=== PATIENT | female | born 1980 | race American Indian/Alaskan Native ===

== ENCOUNTER 2016-07-08 14:11 | Emergency (ER) | payer BC, MEDICAID ==
[2016-07-08 15:32] VITALS: BMI 31.4
[2016-07-08 16:51] LABS: ADD MANUAL DIFF? NO
[2016-07-08 16:59] LABS: PH,URINE 6.5 (4.7-8.0); URINE BILIRUBIN NEGATIVE (NEGATIVE); URINE BLOOD SMALL (NEGATIVE); URINE GLUCOSE (UA) NEGATIVE (NEGATIVE); URINE KETONE NEGATIVE (NEGATIVE); URINE LEUKOCYTE ESTERASE NEGATIVE Leu/uL (NEGATIVE); URINE PROTEIN NEGATIVE mg/dL (<30 mg/dL); URINE UROBILINOGEN 0.2 E.U./dL (<1 E.U./dL)
[2016-07-08 17:01] LABS: BASO # 0.03 K/mm3 (0.0-2.0); BASO % 0.4 % (0.0-3.0); EOS # 0.3 (0.0-0.7); EOS % 3.5 % (1.5-5.0); GRAN # 4.52 (1.4-6.5); GRAN % 55.8 % (50.0-68.0); HEMATOCRIT 35.7 % (36.0-48.0); LYMPH # 2.8 (1.2-3.4); LYMPH % 34.9 % (22.0-35.0); MEAN CELL VOLUME 81.7 fL (80.0-105.0); MEAN CORPUSCULAR HGB CONC 33.1 g/dl (31.0-37.0); MEAN PLATELET VOLUME 9.6 fl (7.0-11.0); MONO # 0.4 (0.1-0.6); MONO % 5.4 % (1.0-6.0); PLATELET COUNT 319 10^3/uL (120.0-450.0); RED CELL DISTRIBUTION WIDTH 16.6 % (11.5-14.5); WHITE BLOOD COUNT 8.1 10^3/ul (4.5-11.0)
[2016-07-08 17:04] LABS: ALKALINE PHOSPHATASE 89 U/L (38-133); ALT/SGPT 16 U/L (7-56); AST/SGOT 23 U/L (15-39); BILIRUBIN,TOTAL 0.5 mg/dL (0.2-1.3); BLOOD UREA NITROGEN 8 mg/dL (7-21); CALCIUM 9.4 mg/dL (8.4-10.5); CARBON DIOXIDE 25 mmol/L (21-33); CHLORIDE 103 mmol/L (98-107); GFR AFRICAN-AMERICAN > 60; GLUCOSE,RANDOM 86 mg/dL (70-110); SODIUM 139 mmol/L (132-148); TOTAL PROTEIN 8.1 g/dL (5.8-8.3)
[2016-07-08 17:09] LABS: URINE APPEARANCE CLEAR (CLEAR); URINE COLOR YELLOW (YELLOW)
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
--- NOTE | 2016-07-08 17:32 | CT ---
PROCEDURE: CT Abdomen and Pelvis without Oral or IV contrast. HISTORY: left sided back pain radiating to llq COMPARISON: None available TECHNIQUE: Contiguous axial images of the abdomen and pelvis. No oral or IV contrast administered. Coronal and Sagittal reformats generated and reviewed. Radiation dose: Total exam DLP = 562.10 mGy-cm. FINDINGS: There is limited evaluation of the solid organs without the administration of IV contrast. LOWER THORAX: No visible consolidation, pleural effusion, or pneumothorax. LIVER: Unremarkable unenhanced appearance. GALLBLADDER AND BILE DUCTS: Unremarkable unenhanced appearance. PANCREAS: Unremarkable unenhanced appearance. SPLEEN: Unremarkable unenhanced appearance. ADRENALS: Unremarkable unenhanced appearance. KIDNEYS AND URETERS: No hydronephrosis or obstructing renal calculus. BLADDER: The urinary bladder appears unremarkable. REPRODUCTIVE: Uterus is present. Suspect small fundal fibroid. 3.2 cm probable left adnexal cyst. APPENDIX: The appendix appears within normal limits of caliber. No secondary signs of acute appendicitis. BOWEL: The stomach is nondistended. Lack of oral contrast limits evaluation for bowel pathology. The bowel loops appear within normal limits of caliber without evidence of intestinal obstruction. PERITONEUM: No significant free fluid. No definite free air. LYMPH NODES: No bulky lymphadenopathy identified. VASCULATURE: Unenhanced vasculature appears grossly unremarkable. BONES: No acute osseous abnormality is detected. OTHER FINDINGS: Tiny fat containing umbilical hernia. IMPRESSION: Suspect small fundal fibroid. 3.2 cm probable left adnexal cyst. Recommend further evaluation with pelvic ultrasound.
[2016-07-08 17:35] LABS: URINE BACTERIA SMALL (NEG)
[2016-07-08 18:51] VITALS: BP 98/65; PULSE 65; RESP 18; TEMP 98.5; O2SAT 98
--- NOTE | 2016-07-09 12:24 | US ---
HISTORY: Cramping, back pain. Menstrual status: Irregular periods/ LMP 07/05/2016. COMPARISON: July 08, 2016. CT abdomen and pelvis. TECHNIQUE: Transvaginal only. Real -time technique with 2D, duplex and color Doppler FINDINGS: UTERUS: Measures 9 x 4.2 cm. Normal in size and appearance. Location of fibroid(s) and size: Submucosal, midline 2.5 x 3 cm. ENDOMETRIUM: Measures 5.5 mm in diameter. No ultrasound findings to suggest gestational sac, fluid, debris, mass or polyp or other pathologic process within the endometrium. CERVIX: No cervical abnormality identified. RIGHT OVARY: Measures 3.4 x 1.9 cm. No solid mass. Normal flow. LEFT OVARY: Measures 4.4 x 3.80 cm. No solid mass. Normal flow. Complex perhaps hemorrhagic cyst 2.8 x 3.1 cm corresponding to findings on recent CT FREE FLUID: No significant free fluid noted. OTHER FINDINGS: None. IMPRESSION: Complex cyst left adnexa. Small and solitary uterine fibroid.
== END 2016-07-08 20:10 | disposition home or self-care (01) ==
LOC: ED 14:11
DX: M54.9 Dorsalgia, unspecified (principal); R10.9 Unspecified abdominal pain; N83.202 Unspecified ovarian cyst, left side
CPT/HCPCS: 74176; 76830; 80053; 81001; 85025; 96374; 99283; J1885

== ENCOUNTER 2016-08-21 09:02 | Emergency (ER) | payer MEDICAID ==
[2016-08-21 09:14] VITALS: RESP 18; O2SAT 100
[2016-08-21 09:23] VITALS: BMI 29.3
[2016-08-21] MEDS ORDERED: Sodium Chloride 0.9% 1,000 ML IV STA (09:37)
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
[2016-08-21 09:50] LABS: ADD MANUAL DIFF? NO
[2016-08-21 09:52] LABS: BASO # 0.02 K/mm3 (0.0-2.0); BASO % 0.2 % (0.0-3.0); EOS # 0.3 (0.0-0.7); EOS % 3.5 % (1.5-5.0); GRAN # 4.77 (1.4-6.5); GRAN % 58.2 % (50.0-68.0); HEMATOCRIT 35.5 % (36.0-48.0); LYMPH # 2.6 (1.2-3.4); LYMPH % 31.5 % (22.0-35.0); MEAN CELL VOLUME 83.1 fL (80.0-105.0); MEAN CORPUSCULAR HEMOGLOBIN 27.4 pg (25.0-35.0); MEAN PLATELET VOLUME 9.2 fl (7.0-11.0); MONO # 0.5 (0.1-0.6); MONO % 6.6 % (1.0-6.0); PLATELET COUNT 327 10^3/uL (120.0-450.0); WHITE BLOOD COUNT 8.2 10^3/ul (4.5-11.0)
[2016-08-21 10:01] LABS: ALKALINE PHOSPHATASE 87 U/L (38-133); ALT/SGPT 24 U/L (7-56); AST/SGOT 22 U/L (15-39); BILIRUBIN,TOTAL 0.7 mg/dL (0.2-1.3); BLOOD UREA NITROGEN 7 mg/dL (7-21); CALCIUM 9.1 mg/dL (8.4-10.5); CARBON DIOXIDE 25 mmol/L (21-33); CHLORIDE 103 mmol/L (98-107); GFR AFRICAN-AMERICAN > 60; GLUCOSE,RANDOM 85 mg/dL (70-110); LIPASE 85 U/L (23-300); POTASSIUM 3.7 mmol/L (3.6-5.0); SODIUM 139 mmol/L (132-148); TOTAL PROTEIN 8.2 g/dL (5.8-8.3)
[2016-08-21 10:06] LABS: PH,URINE 7.5 (4.7-8.0); URINE BILIRUBIN NEGATIVE (NEGATIVE); URINE BLOOD MODERATE (NEGATIVE); URINE GLUCOSE (UA) NEGATIVE (NEGATIVE); URINE KETONE NEGATIVE (NEGATIVE); URINE LEUKOCYTE ESTERASE NEGATIVE Leu/uL (NEGATIVE); URINE PROTEIN TRACE mg/dL (<30 mg/dL); URINE UROBILINOGEN 0.2 E.U./dL (<1 E.U./dL)
[2016-08-21 10:33] LABS: URINE APPEARANCE SL CLOUDY (CLEAR); URINE COLOR YELLOW (YELLOW)
[2016-08-21 11:01] LABS: URINE WBC NEGATIVE /hpf (0-6)
[2016-08-21 11:02] LABS: URINE BACTERIA TRACE (NEG)
--- NOTE | 2016-08-21 11:09 | US ---
HISTORY: pelvic pain r/o ectopic last menstrual period at possibly 07/02/2016 patient not [place]. Patient had tubal ligation 2 years ago. Reported positive test in ER. Beta at 1422 COMPARISON: None available. TECHNIQUE: Transvaginal technique utilized FINDINGS: UTERUS: Measures 9.6 x 4.4 x 5.8 cm cm. Normal in size and appearance. No fibroid or other mass lesion seen. 2.3 x 2.0 x 2.2 cm uterine anterior body intramural fibroid is suggested ENDOMETRIUM: Measures 11 mm in diameter. Unremarkable. CERVIX: No cervical abnormality identified. RIGHT OVARY: Measures 2.5 x 1.7 x 1.7 cm. No solid mass. Normal flow. LEFT OVARY: Measures 2.9 x 1.8 x 2.5 cm. No solid mass. Normal flow. FREE FLUID: No significant free fluid noted. OTHER FINDINGS: None. IMPRESSION: No intrauterine gestation seen. Unremarkable appearing ovaries.. Given patient's clinical scenario, an ectopic is not excluded. No ectopic identified. Close and continued follow-up needed Incidental anterior intra mural uterine fibroid
[2016-08-21 11:21] VITALS: BP 112/61; PULSE 74; TEMP 98.3
== END 2016-08-21 11:47 | disposition short-term general hospital (02) ==
LOC: ED 09:02
DX: O26.891 Other specified pregnancy related conditions, first trimester (principal); R10.2 Pelvic and perineal pain
CPT/HCPCS: 76817; 80053; 81001; 83690; 84702; 84703; 85025; 86850; 86900; 99284; J7040

== ENCOUNTER 2016-08-24 14:57 | Emergency (ER) | payer MEDICAID ==
[2016-08-24 14:57] VITALS: BMI 29.3
--- NOTE | 2016-08-24 15:36 | ED PDOC ---
Arrival/HPI - General Chief Complaint: Medical Clearance Time Seen by Provider: 08/24/16 15:14 Historian: Patient - History of Present Illness Narrative History of Present Illness (Text): 08/24/16 15:32 36yo female present to ED for a repeat BHCG. she miguelina seen her e on 08/21/18 and treated with Methotrexate for ectopic at [facility]. She was advised to return to ED on 08/25 and 08/27 for a repeat BHCG. States she still have pain to the same area she had pain when she was seen here on 08/21/16. Patient denies nausea, vomiting, vaginal bleeding, shoulder pain, SOB, chest pain, any other complaint. Past Medical History - Provider Review Nursing Documentation Reviewed: Yes - Infectious Disease Hx of Infectious Diseases: None - Tetanus Immunization Tetanus Immunization: Unknown - Reproductive Menopause: No - Cardiac Hx Cardiac Disorders: No - Pulmonary Hx Respiratory Disorders: No - Neurological Hx Neurological Disorder: No - HEENT Hx HEENT Disorder: No - Renal Hx Renal Disorder: No - Endocrine/Metabolic Hx Endocrine Disorders: Yes Hx Hypothyroidism: Yes - Hematological/Oncological Hx Blood Disorders: No Hx Blood Transfusions: Yes - Integumentary Hx Dermatological Disorder: No - Musculoskeletal/Rheumatological Hx Musculoskeletal Disorders: Yes Hx Back Pain: Yes - Gastrointestinal Hx Gastrointestinal Disorders: No - Genitourinary/Gynecological Hx Genitourinary Disorders: No - Psychiatric Hx Psychophysiologic Disorder: No Hx Substance Use: No - Surgical History Hx Dilation and Curettage: Yes Hx Tubal Ligation: Yes - Anesthesia Hx Anesthesia: Yes Hx Anesthesia Reactions: No Hx Malignant Hyperthermia: No Family/Social History - Physician Review Nursing Documentation Reviewed: Yes Family/Social History: Unknown Family HX Smoking Status: Never Smoked Hx Alcohol Use: No Hx Substance Use: No Allergies/Home Meds Allergies/Adverse Reactions: Allergies No Known Allergies Allergy (Verified 08/24/16 15:30) Home Medications: Home Meds Medication Instructions Recorded Confirmed Naproxen [Naprosyn] 500 mg PO BID PRN 03/30/16 08/24/16 Review of Systems - Physician Review All systems were reviewed & negative as marked: Yes - Review of Systems Constitutional: Normal Eyes: Normal ENT: Normal Respiratory: Normal Cardiovascular: Normal Gastrointestinal: Abdominal Pain. absent: Constipation, Diarrhea, Nausea, Vomiting, Hematochezia, Hematemesis Genitourinary Female: Normal, Other (Repeat BHCG) Musculoskeletal: Normal Skin: Normal Neurological: Normal Endocrine: Normal Hemo/Lymphatic: Normal Psychiatric: Normal Physical Exam Vital Signs Reviewed: Yes Vital Signs Temp Pulse Resp BP Pulse Ox 08/24/16 15:24 98.3 F 85 20 99/63 L 99 Temperature: Afebrile Blood Pressure: Normal Pulse: Regular Respiratory Rate: Normal Appearance: Positive for: Well-Appearing, Non-Toxic, Comfortable Pain Distress: None Mental Status: Positive for: Alert and Oriented X 3 - Systems Exam Head: Present: Atraumatic, Normocephalic Pupils: Present: PERRL Extroacular Muscles: Present: EOMI Conjunctiva: Present: Normal Mouth: Present: Moist Mucous Membranes Neck: Present: Normal Range of Motion Respiratory/Chest: Present: Clear to Auscultation, Good Air Exchange. No: Respiratory Distress, Accessory Muscle Use Cardiovascular: Present: Regular Rate and Rhythm, Normal S1, S2. No: Murmurs Abdomen: Present: Normal Bowel Sounds. No: Tenderness, Distention, Peritoneal Signs, Rebound, Guarding, McBurney's Point Tender, Rovsing's Sign Present Back: Present: Normal Inspection Upper Extremity: Present: Normal Inspection. No: Cyanosis, Edema Lower Extremity: Present: Normal Inspection. No: Edema Neurological: Present: GCS=15, CN II-XII Intact, Speech Normal Skin: Present: Warm, Dry, Normal Color. No: Rashes Psychiatric: Present: Alert, Oriented x 3, Normal Insight, Normal Concentration Medical Decision Making ED Course and Treatment: 08/24/16 18:18 PT in ED for a repeat BHCG. she was not in any distress. Hemodynamically stable. While waiting for her BHCG, pt requested to be DC. states she don't want to wait for the result, as she plans to go to [facility] on 08/25/16 for the next BHCG. States she knows that they can access her records there. I explained the risk of possibility of persistent and ectopic rupture. She states she understands these risk, but still persisted in signing out AMA. She was strongly advised to f/u with [facility] on 08/25/16 for another BHCG. Advised her to return to ED at anything she changes her time. - Lab Interpretations Lab Results: Lab Results 08/24/16 15:38: Beta HCG, Quant 3133.80 H Disposition/Present on Arrival - Present on Arrival Any Indicators Present on Arrival: No History of DVT/PE: No History of Uncontrolled Diabetes: No Urinary Catheter: No History of Decub. Ulcer: No History Surgical Site Infection Following: None - Disposition Have Diagnosis and Disposition been Completed?: Yes Diagnosis: Ectopic Disposition: AGAINST MEDICAL ADVICE Disposition Time: 16:30 Condition: STABLE
[2016-08-24 15:38] VITALS: BP 99/63; PULSE 85; RESP 20; TEMP 98.3; O2SAT 99
== END 2016-08-24 16:46 | disposition left against medical advice (07) ==
LOC: ED 14:57
DX: O00.90 Unspecified ectopic pregnancy without intrauterine pregnancy (principal)

== ENCOUNTER 2016-09-04 15:48 | Emergency (ER) | payer MEDICAID ==
[2016-09-04 15:57] VITALS: BMI 30.7
[2016-09-04 16:00] VITALS: TEMP 98.2
--- NOTE | 2016-09-04 16:14 | ED PDOC ---
Arrival/HPI - General Chief Complaint: Female Genitourinary Time Seen by Provider: 09/04/16 16:01 - History of Present Illness Narrative History of Present Illness (Text): 36 y/o F presents for repeat beta hcg. Patient is s/p tubal ligation and was found to have a positive beta hcg in ER. She was transferred to [facility] where she was treated with methotrexate. She had a second dose on the (8 days ago) and her beta quant had decreased at that time. She returns to the ER today for another repeat beta hcg. She states that after the second dose, she did have expulsion of bloody contents and she is now no longer bleeding and states her abdominal pain is much improved. She states she has not followed up with OBGYN and was not given an appointment, and she is returning to the ER because she was told to continue getting her care with the doctor who was treating her. Past Medical History - Infectious Disease Hx of Infectious Diseases: None - Tetanus Immunization Tetanus Immunization: Unknown - Cardiac Hx Cardiac Disorders: No - Pulmonary Hx Respiratory Disorders: No - Neurological Hx Neurological Disorder: No - HEENT Hx HEENT Disorder: No - Renal Hx Renal Disorder: No - Endocrine/Metabolic Hx Endocrine Disorders: Yes Hx Hypothyroidism: Yes - Hematological/Oncological Hx Blood Disorders: Yes Hx Blood Transfusions: Yes - Integumentary Hx Dermatological Disorder: No - Musculoskeletal/Rheumatological Hx Musculoskeletal Disorders: Yes Hx Back Pain: Yes - Gastrointestinal Hx Gastrointestinal Disorders: No - Genitourinary/Gynecological Hx Genitourinary Disorders: No - Psychiatric Hx Psychophysiologic Disorder: No Hx Substance Use: No - Surgical History Hx Dilation and Curettage: Yes Hx Tubal Ligation: Yes (2014) - Anesthesia Hx Anesthesia: Yes Hx Anesthesia Reactions: No Hx Malignant Hyperthermia: No Family/Social History Family/Social History: No Known Family HX Smoking Status: Never Smoked Hx Alcohol Use: No Hx Substance Use: No Allergies/Home Meds Allergies/Adverse Reactions: Allergies No Known Allergies Allergy (Verified 09/04/16 15:57) Home Medications: Home Meds Medication Instructions Recorded Confirmed Naproxen [Naprosyn] 500 mg PO BID PRN 03/30/16 09/04/16 Review of Systems - Physician Review All systems were reviewed & negative as marked: Yes - Review of Systems Constitutional: absent: Fevers Cardiovascular: absent: Chest Pain Physical Exam - Physical Exam Narrative Physical Exam (Text): Constitutional: No acute distress. Head: Normocephalic. Atraumatic. Eyes: EOMI. ENT: Moist mucous membranes. Neck: Supple. Cardiovascular: Regular rate. Chest: No tenderness. Respiratory: Clear to auscultation bilaterally. GI: Soft. Nontender. Nondistended. Back: No CVA tenderness. Musculoskeletal: No tenderness or swelling of extremities. Skin: No rash. Neurologic: Alert, no focal deficit. Vital Signs Temp Pulse Resp BP Pulse Ox 09/04/16 17:16 69 18 114/79 98 09/04/16 15:57 98.2 F 74 16 112/76 98 Medical Decision Making ED Course and Treatment: Recheck beta hcg and consult with OBGYN. 09/04/16 17:47 Beta hcg 647 today. Discussed case with Dr. Pablo at [facility] who recalls this case. She recommends continued weekly b hcg until it is 0. Patient states she will continue to come to ER weekly to finish this process. I instructed her to return to the ER immediately for worsening pain, fever, abnormal discharge. - Lab Interpretations Lab Results: Lab Results 09/04/16 16:30: Beta HCG, Quant 647.58 H Disposition/Present on Arrival - Present on Arrival Any Indicators Present on Arrival: No History of DVT/PE: No History of Uncontrolled Diabetes: No Urinary Catheter: No History of Decub. Ulcer: No History Surgical Site Infection Following: None - Disposition Have Diagnosis and Disposition been Completed?: Yes Diagnosis: Visit for blood test, Ectopic Disposition: HOME/ ROUTINE Disposition Time: 17:30 Patient Plan: Discharge Condition: STABLE Additional Instructions: You must have beta hcg tests repeated weekly until it is 0.
[2016-09-04 17:17] VITALS: RESP 18
[2016-09-04 18:09] VITALS: BP 116/71; PULSE 67; O2SAT 99
== END 2016-09-04 18:17 | disposition home or self-care (01) ==
LOC: ED 15:48
DX: O00.90 Unspecified ectopic pregnancy without intrauterine pregnancy (principal)

== ENCOUNTER 2016-09-21 11:46 | Emergency (ER) | payer MEDICAID ==
[2016-09-21 11:46] VITALS: BMI 31.2
--- NOTE | 2016-09-21 12:03 | ED PDOC ---
Arrival/HPI - General Chief Complaint: Medical Clearance Time Seen by Provider: 09/21/16 11:47 Historian: Patient - History of Present Illness Narrative History of Present Illness (Text): 09/21/16 12:03 36 year old female presents to the emergency department for repeat hormone level after diagnosis of ectopic earlier this month. She states she has been following up weekly for repeat beta. Denies any other complaints. Denies bleeding. Past Medical History - Provider Review Nursing Documentation Reviewed: Yes - Infectious Disease Hx of Infectious Diseases: None - Tetanus Immunization Tetanus Immunization: Unknown - Cardiac Hx Cardiac Disorders: No - Pulmonary Hx Respiratory Disorders: No - Neurological Hx Neurological Disorder: No - HEENT Hx HEENT Disorder: No - Renal Hx Renal Disorder: No - Endocrine/Metabolic Hx Hypothyroidism: Yes - Hematological/Oncological Hx Blood Disorders: Yes Hx Blood Transfusions: Yes - Integumentary Hx Dermatological Disorder: No - Musculoskeletal/Rheumatological Hx Musculoskeletal Disorders: Yes Hx Back Pain: Yes - Gastrointestinal Hx Gastrointestinal Disorders: No - Genitourinary/Gynecological Hx Genitourinary Disorders: No Other/Comment: ectopic - Psychiatric Hx Psychophysiologic Disorder: No Hx Substance Use: No - Surgical History Hx Dilation and Curettage: Yes Hx Tubal Ligation: Yes (2014) - Anesthesia Hx Anesthesia: Yes Hx Anesthesia Reactions: No Hx Malignant Hyperthermia: No Family/Social History - Physician Review Nursing Documentation Reviewed: Yes Family/Social History: Unknown Family HX Smoking Status: Never Smoked Hx Alcohol Use: No Hx Substance Use: No Allergies/Home Meds Allergies/Adverse Reactions: Allergies No Known Allergies Allergy (Verified 09/21/16 11:53) Home Medications: Home Meds Medication Instructions Recorded Confirmed No Known Home Med 09/21/16 09/21/16 Review of Systems - Physician Review All systems were reviewed & negative as marked: Yes - Review of Systems Gastrointestinal: absent: Abdominal Pain Genitourinary Female: absent: Vaginal Bleeding, Vaginal Discharge Physical Exam Vital Signs Reviewed: Yes Vital Signs Temp Pulse Resp BP Pulse Ox 09/21/16 11:47 98 F 84 19 107/72 99 Temperature: Afebrile Blood Pressure: Normal Pulse: Regular Respiratory Rate: Normal Appearance: Positive for: Well-Appearing, Non-Toxic, Comfortable Pain Distress: None Mental Status: Positive for: Alert and Oriented X 3 - Systems Exam Head: Present: Atraumatic, Normocephalic Pupils: Present: PERRL Extroacular Muscles: Present: EOMI Conjunctiva: Present: Normal Mouth: Present: Moist Mucous Membranes Neck: Present: Normal Range of Motion Respiratory/Chest: Present: Clear to Auscultation, Good Air Exchange. No: Respiratory Distress, Accessory Muscle Use Cardiovascular: Present: Regular Rate and Rhythm, Normal S1, S2. No: Murmurs Abdomen: Present: Normal Bowel Sounds. No: Tenderness, Distention, Peritoneal Signs Back: Present: Normal Inspection Upper Extremity: Present: Normal Inspection. No: Cyanosis, Edema Lower Extremity: Present: Normal Inspection. No: Edema Neurological: Present: GCS=15, CN II-XII Intact, Speech Normal Skin: Present: Warm, Dry, Normal Color. No: Rashes Psychiatric: Present: Alert, Oriented x 3, Normal Insight, Normal Concentration Medical Decision Making ED Course and Treatment: Impression: 36 year old female presents to the emergency department for repeat hormone level after diagnosis of ectopic earlier this month. Plan: -- Beta HCG -- Reassess and disposition Progress Notes: 09/21/16 12:39 beta decreased. no other complaint. advised to return until beta 0. will d/c - Lab Interpretations Lab Results: Lab Results 09/21/16 12:00: Beta HCG, Quant 4.95 - Scribe Statement The provider has reviewed the documentation as recorded by the Marlen Painter Provider Scribe Attestation: All medical record entries made by the Scribe were at my direction and personally dictated by me. I have reviewed the chart and agree that the record accurately reflects my personal performance of the history, physical exam, medical decision making, and the department course for this patient. I have also personally directed, reviewed, and agree with the discharge instructions and disposition. Disposition/Present on Arrival - Present on Arrival Any Indicators Present on Arrival: No History of DVT/PE: No History of Uncontrolled Diabetes: No Urinary Catheter: No History of Decub. Ulcer: No History Surgical Site Infection Following: None - Disposition Have Diagnosis and Disposition been Completed?: Yes Diagnosis: Visit for blood test Disposition: HOME/ ROUTINE Disposition Time: 12:39 Condition: STABLE Discharge Instructions (ExitCare): Ectopic (ED) Additional Instructions: return in 1 week for repeat blood test. or follow up outpt. return immediately with any worsening symptoms or concerns Referrals: [employer] Chencho Alfaro, [Primary Care Provider] - Follow up with primary [facility] [Outside] - Follow up with primary [employer] [Outside] - Follow up with primary [facility] [Outside] - Follow up with primary Shawn Dominguez [Medical Doctor] - Follow up with primary
[2016-09-21 12:53] VITALS: BP 120/76; PULSE 82; RESP 16; TEMP 98.2; O2SAT 100
== END 2016-09-21 12:48 | disposition home or self-care (01) ==
LOC: ED 11:46
DX: Z00.00 Encounter for general adult medical examination without abnormal findings (principal)

== ENCOUNTER 2016-10-01 13:11 | Emergency (ER) | payer SELFPAY ==
[2016-10-01 13:11] VITALS: BMI 31.2
[2016-10-01 13:16] VITALS: RESP 18; TEMP 98
--- NOTE | 2016-10-01 13:26 | ED PDOC ---
Arrival/HPI - General Historian: Patient - General Chief Complaint: Medical Clearance Time Seen by Provider: 10/01/16 13:16 - History of Present Illness Narrative History of Present Illness (Text): 10/01/16 13:23 36yo female present for a repeat beta quant. Patient was first seen in ED on 08/21 and was transferred to [facility] for probable ectopic . She was given methotrexate and advised to return to ED for a repeat beta until is zero. Her last visit was 09/21/09 and beta was 4.93 at that time. She denies any abdominal pain, any other complaint. (Rafa Gabriel A) Past Medical History - Provider Review Nursing Documentation Reviewed: Yes - Infectious Disease Hx of Infectious Diseases: None - Tetanus Immunization Tetanus Immunization: Unknown - Cardiac Hx Cardiac Disorders: No - Pulmonary Hx Respiratory Disorders: No - Neurological Hx Neurological Disorder: No - HEENT Hx HEENT Disorder: No - Renal Hx Renal Disorder: No - Endocrine/Metabolic Hx Hypothyroidism: Yes - Hematological/Oncological Hx Blood Disorders: Yes Hx Blood Transfusions: Yes - Integumentary Hx Dermatological Disorder: No - Musculoskeletal/Rheumatological Hx Musculoskeletal Disorders: Yes Hx Back Pain: Yes - Gastrointestinal Hx Gastrointestinal Disorders: No - Genitourinary/Gynecological Hx Genitourinary Disorders: No Other/Comment: ectopic - Psychiatric Hx Psychophysiologic Disorder: No Hx Substance Use: No - Surgical History Hx Dilation and Curettage: Yes Hx Tubal Ligation: Yes (2014) - Anesthesia Hx Anesthesia: Yes Hx Anesthesia Reactions: No Hx Malignant Hyperthermia: No Family/Social History - Physician Review Nursing Documentation Reviewed: Yes Family/Social History: Unknown Family HX Smoking Status: Never Smoked Hx Alcohol Use: No Hx Substance Use: No Allergies/Home Meds Allergies/Adverse Reactions: Allergies No Known Allergies Allergy (Verified 10/01/16 13:14) Home Medications: Home Meds Medication Instructions Recorded Confirmed No Known Home Med 09/21/16 10/01/16 Review of Systems - Physician Review All systems were reviewed & negative as marked: Yes - Review of Systems Constitutional: Normal Eyes: Normal ENT: Normal Respiratory: Normal Cardiovascular: Normal Gastrointestinal: Normal Genitourinary Female: Other (Repeat beta quant) Musculoskeletal: Normal Skin: Normal Neurological: Normal Endocrine: Normal Hemo/Lymphatic: Normal Psychiatric: Normal Physical Exam Vital Signs Reviewed: Yes Temperature: Afebrile Blood Pressure: Normal Pulse: Regular Respiratory Rate: Normal Appearance: Positive for: Well-Appearing, Non-Toxic, Comfortable Pain Distress: None Mental Status: Positive for: Alert and Oriented X 3 - Systems Exam Head: Present: Atraumatic, Normocephalic Pupils: Present: PERRL Extroacular Muscles: Present: EOMI Conjunctiva: Present: Normal Mouth: Present: Moist Mucous Membranes Neck: Present: Normal Range of Motion Respiratory/Chest: Present: Clear to Auscultation, Good Air Exchange. No: Respiratory Distress, Accessory Muscle Use Cardiovascular: Present: Regular Rate and Rhythm, Normal S1, S2. No: Murmurs Abdomen: Present: Normal Bowel Sounds. No: Tenderness, Distention, Peritoneal Signs Back: Present: Normal Inspection Upper Extremity: Present: Normal Inspection. No: Cyanosis, Edema Lower Extremity: Present: Normal Inspection. No: Edema Neurological: Present: GCS=15, CN II-XII Intact, Speech Normal Skin: Present: Warm, Dry, Normal Color. No: Rashes Psychiatric: Present: Alert, Oriented x 3, Normal Insight, Normal Concentration Vital Signs Temp Pulse Resp BP Pulse Ox 10/01/16 13:15 98.0 F 93 H 18 103/67 97 Medical Decision Making ED Course and Treatment: 10/01/16 13:27 I was available for consultation during PA evaluation. The chart was reviewed by me, and I agree with disposition. The documented history was done by the physician yarn examiner skeins. The documented physical exam was done by the physician yarn examiner skeins. The documented procedures were done by the physician yarn examiner skeins. (Al Mckeon) 10/01/16 14:16 Pt presented for stated history. Denied any somatic complaint in ED and comfortable. Her repeat Beat is <2.39. Result was DW the pt and was refereed to a [employer] [employer]. (Rafa Gabriel) - Lab Interpretations Lab Results: Lab Results 10/01/16 13:30: Beta HCG, Quant < 2.39 Disposition/Present on Arrival - Present on Arrival Any Indicators Present on Arrival: No History of DVT/PE: No History of Uncontrolled Diabetes: No Urinary Catheter: No History of Decub. Ulcer: No History Surgical Site Infection Following: None - Disposition Have Diagnosis and Disposition been Completed?: Yes Disposition Time: 14:15 Patient Plan: Discharge - Disposition Diagnosis: Ectopic Disposition: HOME/ ROUTINE Patient Problems: Current Active Problems Problem Status Onset Ectopic Acute Condition: STABLE Discharge Instructions (ExitCare): Ectopic (ED) Additional Instructions: Follow up with your [employer] [employer] Return to ED for any new symptoms Referrals: PCP,NO [Primary Care Provider] - Follow up with primary [facility] [place] [Outside] - Follow up with primary
[2016-10-01 14:31] VITALS: BP 105/64; PULSE 88; O2SAT 98
== END 2016-10-01 14:30 | disposition home or self-care (01) ==
LOC: ED 13:11
DX: O00.90 Unspecified ectopic pregnancy without intrauterine pregnancy (principal)